=== PATIENT | female | born 1965 | race Caucasian/White ===

== ENCOUNTER 2017-07-27 16:34 | Emergency (ER) | payer OTHER ==
[2017-07-27] MEDS ORDERED: ONDANSETRON HCL IV 4 MG/2 ML VIAL IVP ONE (16:39)
[2017-07-27] MEDS ORDERED: ASPIRIN 81 MG CHEWABLE TABLET PO ONE (16:39)
[2017-07-27] MEDS ORDERED: MAGNESIUM HYDROXIDE/AL HYDROX 30 ML, LIDOCAINE VISC 2% 200 MG PO ONE ×2 (16:39)
--- NOTE | 2017-07-27 16:43 | Emergency Department Record ---
History of Present Illness - General Chief Complaint: Chest Pain Stated Complaint: CP/HEARTBURN Time Seen by Provider: 07/27/17 16:38 Source: Patient, Family Mode of Arrival: Ambulatory Limitations: No limitations - History of Present Illness Initial Comments: 52 yo female presents with discomfort in the lower chest. The discomfort started earlier today. It is associated with some nausea without vomiting and feeling a little short of breath. She took her Ranitidine without improvement. No history of CAD. No other recent changes in her health. No edema. Her PCP is Dr Irma Burgess MD Complaint: Chest pain -: Hour(s) Pain Location: Substernal Pain Radiation: None Severity: Moderate Consistency: Constant Improves With: Nothing Worsens With: Nothing Anginal Symptoms: Dyspnea, Nausea Treatments Prior to Arrival: Other (Antacids) - Related Data Home Medications Medication Instructions Recorded Confirmed Last Taken Ranitidine HCl [Zantac] 300 mg PO DAILY 07/27/17 07/27/17 1 Day Ago ~07/26/17 Temazepam [Restoril] 15 mg PO QHS PRN 07/27/17 07/27/17 1 Day Ago ~07/26/17 Allergies Allergy/AdvReac Type Severity Reaction Status Date / Time No Known Drug Allergies Allergy Verified 07/27/17 16:46 Review of Systems Constitutional: Denies: Chills, Fever, Malaise, Weakness Eyes: Denies: Eye discharge, Eye pain, Vision change ENT: Denies: Congestion, Dental pain, Epistaxis, Throat pain Respiratory: Reports: As per HPI, Dyspnea. Denies: Cough, Hemoptysis, Stridor, Wheezes Cardiovascular: Reports: As per HPI, Chest pain, Dyspnea on exertion. Denies: Edema, Palpitations, Syncope Endocrine: Denies: Fatigue, Polydipsia, Polyuria Gastrointestinal: Reports: Nausea. Denies: Abdominal pain, Diarrhea, Vomiting Genitourinary: Denies: Dysuria, Urgency Musculoskeletal: Denies: Arthralgia, Back pain, Myalgia, Neck pain Skin: Denies: Bruising, Change in color, Rash Neurological: Denies: Headache, Numbness, Tremors, Vertigo, Weakness Psychiatric: Denies: Anxiety Hematological/Lymphatic: Denies: Blood Clots, Easy bleeding, Easy bruising, Swollen glands Physical Exam - General General Appearance: Alert, Oriented x3, Cooperative, No acute distress Limitations: No limitations - Head Head exam: Normal inspection - Eye Eye exam: Normal appearance, PERRL. negative: Conjunctival injection, Scleral icterus - ENT ENT exam: Normal exam, Mucous membranes moist Ear exam: Normal external inspection Nasal Exam: Normal inspection Mouth exam: Normal external inspection - Neck Neck exam: Normal inspection, Full ROM. negative: Tenderness - Respiratory Respiratory exam: Normal lung sounds bilaterally. negative: Respiratory distress - Cardiovascular Cardiovascular Exam: Regular rate, Normal rhythm, Normal heart sounds Peripheral Pulses: 2+: Radial (R), Radial (L) - GI/Abdominal GI/Abdominal exam: Soft. negative: Tenderness - Rectal Rectal exam: Deferred - exam: Deferred - Extremities Extremities exam: Normal inspection, Full ROM, Normal capillary refill. negative: Pedal edema, Tenderness - Back Back exam: Reports: Normal inspection, Full ROM. Denies: Muscle spasm, Rash noted, Tenderness - Neurological Neurological exam: Alert, Normal gait, Oriented X3 - Psychiatric Psychiatric exam: Normal affect, Normal mood - Skin Skin exam: Dry, Intact, Normal color, Warm Course - Reevaluation(s) Reevaluation #1: EMR reviewed. No prior EKG on EMR. 07/27/17 16:43 07/27/17 17:02 The CBC was reviewed and is normal EKG 16:42 NSR, rate 73, intervals normal, axis normal, ST normal. 07/27/17 17:23 No acute changes on the CXR 07/27/17 17:34 No acute changes on the CMP or Troponin. 07/27/17 17:49 On recheck the pain is better but not gone She states there is pain with inspiration as well CTA ordered 07/27/17 18:37 07/27/17 18:56 The CTA of the Chest was negative for any acute pathology I TERI [place] regarding admission for chest pain with serial enzymes and cardiology consultation Medical Decision Making - Lab Data Result diagrams: 07/27/17 16:45 07/27/17 16:45 Disposition Disposition: Admit Clinical Impression: Chest pain Disposition: Still a Patient at [facility] Decision to Admit: Admit from ER Decision to Admit Date: 07/27/17 Decision to Admit Time: 17:34 Condition: (1) Good Forms: Patient Portal Access Time of Disposition: 17:34 Quality - Quality Measures Quality Measures: N/A - Blood Pressure Screening Does Patient Have Any of the Following: No Blood Pressure Classification: Pre-Hypertensive BP Reading Systolic Measurement: 121 Diastolic Measurement: 70 Screening for High Blood Pressure: < Pre-Hypertensive BP, F/U Documented > [ G8950] Pre-Hypertensive Follow-up Interventions: Referral to alternative/primary care provider.
[2017-07-27 16:59] LABS: BASO % 0.5 % (0-6); EOS % 1.2 % (0-6); GRAN % 45.8 % (47-80); HEMATOCRIT 40.2 % (35.0-47.0); HEMOGLOBIN 12.9 gm/dl (11.6-16.0); LYMPH % 38.2 % (16-45); MEAN CELL VOLUME 90.5 fl (81-97); MEAN CORPUSCULAR HEMOGLOBIN 29.1 pg (27-33); MEAN CORPUSCULAR HGB CONC 32.1 g/dl (32-36); MEAN PLATELET VOLUME 10.3 fl (7.4-10.4); MONO % 14.3 % (0-9); PLATELET COUNT 291 K/uL (130-400); RED BLOOD COUNT 4.44 M/uL (3.80-5.40); RED CELL DISTRIBUTION WIDTH 13.2 % (11.5-14.5); WHITE BLOOD COUNT W/O DIFF 6.4 K/uL (4.2-12.2)
[2017-07-27 17:11] LABS: INR 0.97; PARTIAL THROMBOPLASTIN TIME 29.2 SECONDS (24.5-39.1); PROTHROMBIN TIME (PATIENT) 10.5 SECONDS (9.5-12.1)
[2017-07-27 17:28] LABS: ALB/GLOB RATIO 1.5 (1.1-1.8); ALBUMIN 4.3 g/dL (4.0-5.0); ALKALINE PHOSPHATASE 71 U/L (35-104); ALT/SGPT 15 U/L (<33); AST/SGOT 21 U/L (10.0-35.0); BLOOD UREA NITROGEN 12 mg/dL (6-20); CREATININE 0.7 mg/dL (0.5-0.9); EST GLOMERULAR FILTRATION RATE > 60 mL/min; GLUCOSE,RANDOM 94 mg/dL (74-109); TOTAL PROTEIN 7.2 g/dL (6.6-8.7)
[2017-07-27 17:29] LABS: CKMB 2.7 ng/mL (<3.77)
[2017-07-27 17:41] LABS: CREATINE PHOSPHOKINASE 170 U/L (26-192)
[2017-07-27] MEDS ORDERED: NITROGLYCERIN 0.4MG SL TABLET #25 BTL SL ONE (17:49)
[2017-07-27] MEDS ORDERED: 0.9 % SODIUM CHLORIDE 1,000 ML BAG IV ONE (17:49)
[2017-07-27] MEDS ORDERED: MORPHINE SULFATE 5 MG/ML PFS IVP ONE (18:55)
--- NOTE | 2017-07-27 20:46 | Emergency Department Record ---
History of Present Illness - General Chief Complaint: Chest Pain Stated Complaint: CP/HEARTBURN Time Seen by Provider: 07/27/17 16:38 Source: Patient, Family Mode of Arrival: Ambulatory Limitations: No limitations - History of Present Illness Onset/Timin -: Hour(s) Onset: During rest Pain Location: Substernal Pain Radiation: None Severity: Moderate Severity scale (1-10): 6 Quality: Aching Consistency: Constant Improves With: Nothing Worsens With: Nothing Anginal Symptoms: Dyspnea, Nausea Other Symptoms: Acid taste in mouth Treatments Prior to Arrival: Other (Antacids) - Related Data Home Medications Medication Instructions Recorded Confirmed Last Taken Ranitidine HCl [Zantac] 300 mg PO DAILY 07/27/17 07/27/17 1 Day Ago ~07/26/17 Temazepam [Restoril] 15 mg PO QHS PRN 07/27/17 07/27/17 1 Day Ago ~07/26/17 Previous Rx's Medication Instructions Recorded Sucralfate [Carafate] 1 g PO QID #30 udc 07/27/17 Allergies Allergy/AdvReac Type Severity Reaction Status Date / Time No Known Drug Allergies Allergy Verified 07/27/17 16:46 Travel Screening - Travel/Exposure Within Last 30 Days Have you traveled within the last 30 days?: No - Travel/Exposure Within Last Year Have you traveled outside the [place] in the last year?: No - Additonal Travel Details Have you been exposed to anyone with a communicable illness?: No - Travel Symptoms Symptom Screening: None Review of Systems Constitutional: Denies: Chills, Fever, Malaise, Weakness Eyes: Denies: Eye discharge, Eye pain, Vision change ENT: Denies: Congestion, Dental pain, Epistaxis, Throat pain Respiratory: Reports: As per HPI, Dyspnea. Denies: Cough, Hemoptysis, Stridor, Wheezes Cardiovascular: Reports: As per HPI, Chest pain, Dyspnea on exertion. Denies: Edema, Palpitations, Syncope Endocrine: Denies: Fatigue, Polydipsia, Polyuria Gastrointestinal: Reports: Nausea. Denies: Abdominal pain, Diarrhea, Vomiting Genitourinary: Denies: Dysuria, Urgency Musculoskeletal: Denies: Arthralgia, Back pain, Myalgia, Neck pain Skin: Denies: Bruising, Change in color, Rash Neurological: Denies: Headache, Numbness, Tremors, Vertigo, Weakness Psychiatric: Denies: Anxiety Hematological/Lymphatic: Denies: Blood Clots, Easy bleeding, Easy bruising, Swollen glands Past Medical History - SOCIAL HISTORY Smoking Status: Never smoker Alcohol Use: Occasional Drug Use: None - RESPIRATORY Hx Bronchitis: Yes - CARDIOVASCULAR Hx Hypotension: Yes (by history) Comment:: stress test more than 10 years ago - NEURO Hx Headaches: Yes - GI Hx GI Disorders: Yes Hx Reflux: Yes - Hx Kidney Stones: Yes - ENDOCRINE Hx Diabetes: No Hx Thyroid Disease: No - MUSCULOSKELETAL Hx Musculoskeletal Disorders: No - PSYCH Hx Psych Problems: No Family Medical History Any Significant Family History?: Yes Family Hx Comment (NOT TO BE USED IN PLACE OF ITEMS BELOW): parents are healthy Hx Heart Disease: Grandparents Hx Resp Disorders: Grandparents Physical Exam - General Limitations: No limitations Course Vital Signs 07/27/17 07/27/17 07/27/17 16:37 17:49 18:02 Temperature 98.0 F Pulse Rate 67 Pulse Rate [ 71 72 [employer] ] Respiratory 14 14 16 Rate Blood Pressure 121/70 Blood Pressure 121/78 118/66 [Left Arm] Blood Pressure [Right Arm] Pulse Ox 95 97 97 07/27/17 07/27/17 07/27/17 18:10 18:11 18:53 Temperature Pulse Rate Pulse Rate [ 82 77 [employer] ] Respiratory 16 16 Rate Blood Pressure Blood Pressure 106/55 102/62 124/78 [Left Arm] Blood Pressure [Right Arm] Pulse Ox 97 100 07/27/17 19:45 Temperature Pulse Rate Pulse Rate [ 70 [employer] ] Respiratory 12 Rate Blood Pressure Blood Pressure [Left Arm] Blood Pressure 106/66 [Right Arm] Pulse Ox 99 - Reevaluation(s) Reevaluation #1: 07/27/17 21:07 Repeat Troponin is negative for myocardial injury, and the patient appears stable for discharge. Medical Decision Making - Lab Data Result diagrams: 07/27/17 16:45 07/27/17 16:45 Lab Results 07/27/17 07/27/17 07/27/17 Range/Units 16:45 16:45 16:45 WBC 6.4 (4.2-12.2) K/uL RBC 4.44 (3.80-5.40) M/uL Hgb 12.9 (11.6-16.0) gm/dl Hct 40.2 (35.0-47.0) % MCV 90.5 (81-97) fl MCH 29.1 (27-33) pg MCHC 32.1 (32-36) g/dl RDW 13.2 (11.5-14.5) % Plt Count 291 (130-400) K/uL MPV 10.3 (7.4-10.4) fl Gran % 45.8 L (47-80) % Lymphocytes % 38.2 (16-45) % Monocytes % 14.3 H (0-9) % Eosinophils % 1.2 (0-6) % Basophils % 0.5 (0-6) % PT 10.5 (9.5-12.1) SECONDS INR 0.97 APTT 29.20 (24.5-39.1) SECONDS Sodium 142 (136-145) mmol/L Potassium 4.0 (3.4-4.5) mmol/L Chloride 101 (98-107) mmol/L Carbon Dioxide 30.0 H (22-29) mmol/L Anion Gap 11.0 (7-16) BUN 12 (6-20) mg/dL Creatinine 0.7 (0.5-0.9) mg/dL Estimated GFR > 60 mL/min Random Glucose 94 (74-109) mg/dL Calcium 9.1 (8.6-10.0) mg/dL Total Bilirubin 0.20 (0.2-1.0) mg/dL AST 21 (10.0-35.0) U/L ALT 15 (<33) U/L Alkaline Phosphatase 71 (35-104) U/L Creatine Kinase 170 (26-192) U/L CK-MB (CK-2) 2.7 (<3.77) ng/mL Troponin T < 0.010 (0-0.010) ng/mL Total Protein 7.2 (6.6-8.7) g/dL Albumin 4.3 (4.0-5.0) g/dL Globulin 2.9 (1.4-4.8) gm/dL Albumin/Globulin Ratio 1.5 (1.1-1.8) Disposition Disposition: Discharge Clinical Impression: Chest pain Qualifiers: Chest pain type: unspecified Qualified Code(s): R07.9 - Chest pain, unspecified Disposition: Against Medical Advice Condition: (1) Good Instructions: Chest Pain (ED) Additional Instructions: Return to ED if your symptoms if your symptoms worsen or if you have any concerns. Follow-up with Dr. He in 1-3 days as directed for further cardiac evaluation. Prescriptions: Sucralfate [Carafate] 1 g PO QID #30 [facility] [place]: TOMMIE HE M.D. [MEDICAL DOCTOR] - [facility] Special[facility] [Provider Group] Forms: Patient Portal Access Time of Disposition: 21:08 Quality - Quality Measures Quality Measures: N/A - Blood Pressure Screening Does Patient Have Any of the Following: No Blood Pressure Classification: Pre-Hypertensive BP Reading Systolic Measurement: 121 Diastolic Measurement: 70 Screening for High Blood Pressure: < Pre-Hypertensive BP, F/U Documented > [ G8950] Pre-Hypertensive Follow-up Interventions: Referral to alternative/primary care provider.
--- NOTE | 2017-07-28 10:24 | RADIOLOGY REPORT ---
EXAM: CHEST, TWO VIEWS HISTORY: MID CHEST PAIN TODAY. TECHNIQUE: PA and lateral views of the chest were obtained. Comparison: None. FINDINGS: The heart size is normal. Mild apical pleural thickening bilaterally. Slight blurring artifact evident on the frontal view. No definite acute infiltrate seen and no pleural effusion or pneumothorax evident. Mild spurring in the spine. IMPRESSION: 1. MILD APICAL PLEURAL THICKENING BILATERALLY. 2. MILD THORACIC CURVE TO THE RIGHT WITH MILD SPURRING IN THE SPINE. 3. NO DEFINITE ACUTE INFILTRATE SEEN. JOB NUMBER: [id number] [facility]
--- NOTE | 2017-07-28 13:55 | CT ANGIOGRAM REPORT ---
EXAM: EMERGENCY CTA OF THE CHEST FOR PE WITH POST PROCESSING HISTORY: CHEST PAIN, POSSIBLE PE. TECHNIQUE: CTA of the chest was performed following the intravenous administration of 100 ml of Omnipaque 350 as the IV contrast. Post processing on an independent workstation was performed with multiple 3D MIP series obtained. Comparison: No prior chest CT. Comparison is made with the two view chest x- ray from today on 07/27/17. FINDINGS: No definite PE identified. No thoracic aortic aneurysm or dissection is seen. No pleural or pericardial effusion evident. Mild apical pleural thickening bilaterally. Mild dependent atelectasis in the lung bases posteriorly. No pneumothorax evident. Some spurring in the spine. IMPRESSION: EMERGENCY CHEST CTA APPEARS ESSENTIALLY NEGATIVE WITH NO DEFINITE PE IDENTIFIED. JOB NUMBER: [id number] [facility]
== END 2017-07-27 21:22 | disposition left against medical advice (07) ==
LOC: ER 16:34
DX: R07.2 Precordial pain (principal); R11.0 Nausea; R06.00 Dyspnea, unspecified
CPT/HCPCS: 99284 ×2; 96374; 82550; 85025; 85730; 85610; 82553; 80053; 84484; 71020; 71275; 93005; 93010; Q9967; J2405; J7030